=== PATIENT | male | born 1985 | race Caucasian/White ===

== ENCOUNTER 2023-04-25 03:25 | Emergency (ER) | payer SELFPAY ==
[~2023-04-25] VITALS: Ht 180.3 cm; Wt 66.7 kg
[2023-04-25 03:30] VITALS: BP 132/79
== END 2023-04-25 06:54 | disposition home or self-care (01) ==
LOC: ER 03:25
DX: R07.9 Chest pain, unspecified (principal); F43.20 Adjustment disorder, unspecified
CPT/HCPCS: 93005; 93010; 99284-25